=== PATIENT | female | born 1995 | race Caucasian/White ===

== ENCOUNTER 2017-09-10 15:09 | Observation (INO) | payer MEDICAID ==
[~2017-09-10] VITALS: Ht 154.9 cm; Wt 73.5 kg
== END 2017-09-10 18:36 | disposition home or self-care (01) ==
LOC: L&D 15:09
PROVIDERS: ADMIT Obstetrics & Gynecology; ATTEND Obstetrics & Gynecology
DX: O26.893 Other specified pregnancy related conditions, third trimester (principal); R10.9 Unspecified abdominal pain; Z3A.37 37 weeks gestation of pregnancy
CPT/HCPCS: 76805; 76818; 99281; G0378